=== PATIENT | female | born 2000 | race African-American/Black ===

== ENCOUNTER 2024-10-21 23:27 | Emergency (ER) | payer SELFPAY ==
[2024-10-22] MEDS: diphenhydrAMINE 50 MG/ML SDV IM ONE (00:23)
[2024-10-22] MEDS: Ketorolac 30 MG/ML SDV IVPUSH ONE (00:24)
[2024-10-22] MEDS: Ondansetron 4 MG/2 ML SDV IVPUSH PRN (00:24)
== END 2024-10-22 01:30 | disposition home or self-care (01) ==
LOC: CC.ED 23:27
DX: G43.909 Migraine, unspecified, not intractable, without status migrainosus (principal)
CPT/HCPCS: 96372; 96374; 96375; 99283; 99283-25; J1200; J1885; J2405

== ENCOUNTER 2024-11-26 14:19 | Emergency (ER) | payer SELFPAY ==
[2024-11-26] MEDS: Ketorolac 30 MG/ML SDV IM ONE (15:09)
[2024-11-26] MEDS: Take Home: Acetaminophen/HYDROcodone 325-5 MG, 2 Tab Pack PO ONE (15:10)
[2024-11-26] MEDS: Take Home: Amoxicillin 500 MG Cap, 2 Cap Pack PO ONE (15:10)
== END 2024-11-26 15:25 | disposition home or self-care (01) ==
LOC: CC.ED 14:19
DX: K04.7 Periapical abscess without sinus (principal); Z79.899 Other long term (current) drug therapy
CPT/HCPCS: 96372; 99282; A9270; J1885